=== PATIENT | male | born 1955 | race Caucasian/White ===

== ENCOUNTER 2016-10-03 10:13 | Inpatient (IN) | payer BC ==
[~2016-10-03 10:13] MED LIST: Bacitracin IV* 50,000 UNITS INJ ONE; Dexamethasone IV* 4 MG/ML 1 ML (4 MG) IV SLOW PU ONE; Famotidine IV* 10 MG/ML 2 ML (20 mg) IV ONE; Lidocaine 1% MPF wEPI 200,000* 30 ML SDV ONE; Thrombin 5,000 UNITS* 1 APPLIC KIT - topical use - TOPICAL ONE
[2016-10-03] MEDS ORDERED: Famotidine IV* 10 MG/ML 2 ML (20 mg) ONE ×2 (10:22→10:31)
[2016-10-03] MEDS ORDERED: Dexamethasone IV* 4 MG/ML 1 ML (4 MG) ONE ×2 (10:22→10:31)
[2016-10-03] MEDS ORDERED: Buffered Lidocaine 0.9% SYRIN* 5 ML/SYR SYRINGE ONE (10:22)
[2016-10-03] MEDS ORDERED: ceFAZolin 2 GM PREMIX(*) 2 GM/50 ML BAG IVPB ONE (10:22)
[2016-10-03] MEDS ORDERED: Thrombin 5,000 UNITS* 1 APPLIC KIT - topical use - TOPICAL ONE (11:36)
[2016-10-03] MEDS ORDERED: fentaNYL* 50 MCG/ML 2 ML VIAL (100 MCG VIAL) ONE ×2 (11:46→14:31)
[2016-10-03] MEDS ORDERED: Lidocaine 2% PF * 5 ML VIAL ONE (11:46)
[2016-10-03] MEDS ORDERED: Propofol* 10 MG/ML 20 ML BTL IV PUSH ONE (11:46)
[2016-10-03] MEDS ORDERED: Rocuronium* 10 MG/ML VIAL ONE (11:47)
[2016-10-03] MEDS ORDERED: Succinylcholine* 20 MG/ML 10 ML VIAL ONE (11:47)
[2016-10-03] MEDS ORDERED: HYDROcodone/ACETAMIN 5-325 MG* 1 TAB PO PRN (12:35)
[2016-10-03] MEDS ORDERED: oxyCODONE/Acetamin 5/325 MG* TAB PO PRN (12:35)
[2016-10-03] MEDS ORDERED: PROCHLORPERAZINE INJ 5 MG/ML 2 ML VIAL IV PRN (12:35)
[2016-10-03] MEDS ORDERED: Ondansetron INJ* 2 MG/ML VIAL ONE (12:56)
[2016-10-03] MEDS ORDERED: Ondansetron INJ* 2 MG/ML VIAL IV PRN (13:24)
[2016-10-03] MEDS ORDERED: Morphine PCA ADULT* 5 MG/ML 30 ML PCA SCH (14:00)
[2016-10-03] MEDS: fentaNYL* 50 MCG/ML 2 ML VIAL (100 MCG VIAL) IV PRN ×2 (14:33→14:43)
--- NOTE | 2016-10-03 14:44 | RAD ---
HISTORY: Decompressive lumbar laminectomy COMPARISONS: September 08, 2016 VIEWS: 1 , portable view of the lumbar spine performed for localization during spinal surgery. FINDINGS: Single crosstable lateral view of the lumbar spine performed at 12:30 demonstrates a metallic probe opposite of L5-S1, counting from L5 as the last lumbar type vertebral body. IMPRESSION: LIMITED PORTABLE VIEW OF THE SPINE FOR LOCALIZATION DURING SPINAL SURGERY.
[2016-10-03] MEDS ORDERED: HYDROcodone/ACETAMIN 5-325 MG* 1 TAB ONE (16:27)
[2016-10-03] MEDS: HYDROcodone/ACETAMIN 5-325 MG* 1 TAB PO PRN ×2 (16:29→22:10)
[2016-10-03] MEDS: Ropinirole TAB* 0.5 MG TAB PO SCH (20:32)
[2016-10-04] MEDS: HYDROcodone/ACETAMIN 5-325 MG* 1 TAB PO PRN ×4 (03:45→19:54)
--- NOTE | 2016-10-04 07:45 | PN ---
Progress Note - Progress Note SOAP: Subjective: []POD # 1 Doing well pre op leg pain relieved Moderate drain output Objective: []Neuro intact Moderate drain output Assessment: []Satis post op course Plan: []Monitor drainage Continue to observe for now
[2016-10-04] MEDS: DULoxetine DR CAP* 30 MG CAP.DR PO SCH (10:03)
[2016-10-04] MEDS: Diltiazem CD CAP* 120 MG PO SCH (10:04)
[2016-10-04] MEDS: Valsartan TAB* 40 MG PO SCH (10:04)
[2016-10-04] MEDS: buPROPion SR TAB.SR* 150 MG PO SCH (10:04)
[2016-10-04] MEDS: Acetaminophen TAB* 325 MG PO PRN ×2 (10:13→14:28)
[2016-10-04] MEDS ORDERED: Magnesium Hydroxide LIQ* 30 ML UDC PO PRN (19:47)
[2016-10-04] MEDS: Docusate CAP* 100 MG PO PRN (19:54)
[2016-10-04] MEDS: Ropinirole TAB* 0.5 MG TAB PO SCH (19:55)
[2016-10-05 07:48] VITALS: BP 121/65
--- NOTE | 2016-10-05 08:10 | PN ---
Progress Note - Progress Note SOAP: Subjective: [This is a 61 year old male s/p decompressive lumbar laminectomy L4-5 and lumbar discectomy L5-S1 on the left, POD #2. He complains of incisional soreness this morning. Pre-op symptoms are improving. He is ambulating independently. He is eating, drinking and voiding without difficulty. Denies headache. Pain is well controlled with PO pain medications. ] Objective: [ Vital Signs: Temp Pulse Resp BP Pulse Ox 98.1 F 64 16 121/65 100 10/05/16 07:22 10/05/16 07:22 10/05/16 07:22 10/05/16 07:22 10/05/16 07:22 General: alert and oriented. No distress. Neuro: Motor and sensory intact. Incision: Intact with jenny. GERARD drain removed today. No infection. Extremities: Full ROM GERARD drain output 10/03/16 10/03/16 10/03/16 17:07 19:24 20:40 Output, GERARD #1 40 45 15 10/03/16 10/04/16 10/04/16 22:25 00:04 03:57 Output, GERARD #1 15 15 15 10/04/16 10/04/16 10/04/16 08:30 13:57 22:00 Output, GERARD #1 15 15 30 10/05/16 06:00 Output, GERARD #1 10 ] Assessment: [Satisfactory post-op course. ] Plan: [1. Discharge home today 2. Discharge instructions discussed with the patient. ]
[2016-10-05] MEDS: Valsartan TAB* 40 MG PO SCH (08:45)
[2016-10-05] MEDS: DULoxetine DR CAP* 30 MG CAP.DR PO SCH (08:45)
[2016-10-05] MEDS: buPROPion SR TAB.SR* 150 MG PO SCH (08:45)
[2016-10-05] MEDS: Docusate CAP* 100 MG PO PRN (08:45)
[2016-10-05] MEDS: HYDROcodone/ACETAMIN 5-325 MG* 1 TAB PO PRN (08:46)
[2016-10-05] MEDS: Diltiazem CD CAP* 120 MG PO SCH (08:46)
--- NOTE | 2016-10-07 01:51 | DS ---
DISCHARGE SUMMARY: DATE OF ADMISSION: 10/03/16 DATE OF DISCHARGE: 10/05/16 DISCHARGE DIAGNOSES: 1. Herniated nucleus pulposus, L5-S1, on the left. 2. Lumbar spinal stenosis, L4-L5. 3. Hypertension. SPECIAL PROCEDURES: 1. Decompressive lumbar laminectomy, L4-L5. 2. Lumbar discectomy, L5-S1, on the left. HOSPITAL COURSE: This 61-year-old male presented in office with significant left- sided lumbar radiculopathy and weakness of the left lower extremity consistent with new herniated disk evidenced on lumbar spine MRI. He also noted a component of lumbar stenosis for the past several months. He failed to improve with conservative treatments for the next several weeks and was admitted at this time for elective surgical treatment. On the day of admission , he was taken to surgery, where under general anesthesia, a decompressive lumbar laminectomy at L4-L5 and lumbar discectomy at L5-S1 on the left operation was carried out. Postoperatively, he is doing well. Preoperative components were improving. The pain is well controlled with oral pain medication. He is eating, drinking, and voiding without difficulty. He remained in the hospital for an additional day secondary to wound drain output requiring further observation. On the second postoperative day, he was discharged home to the care of his family. Prior to discharge, the GERARD wound drain was removed without complication. DISCHARGE INSTRUCTIONS: Including wound care and activity level were discussed with the patient and provided. He will be seen in the office in approximately 7 to 10 days for followup and staple removal. DISCHARGE MEDICATIONS: [place] 5/325 mg 2 tablets by mouth every 4 hours as needed for pain. CHITO GLEZ [id number]/[facility] #: [id number] SHI
== END 2016-10-05 10:45 | disposition home or self-care (01) | DRG 310 ==
LOC: OR 10:13 → SSU 13:24 → OBSVTOIN 10-04 15:53
PROVIDERS: ADMIT Neurological Surgery; ATTEND Neurological Surgery
PROC: 01NB0ZZ Release Lumbar Nerve, Open Approach (ICD-10-PCS; principal; 2016-10-04)
PROC: 0SB40ZZ Excision of Lumbosacral Disc, Open Approach (ICD-10-PCS; 2016-10-04)
DX: M51.17 Intervertebral disc disorders with radiculopathy, lumbosacral region (principal); I10 Essential (primary) hypertension; M48.06 Spinal stenosis, lumbar region; Z85.46 Personal history of malignant neoplasm of prostate; G25.81 Restless legs syndrome; G47.33 Obstructive sleep apnea (adult) (pediatric); Z88.8 Allergy status to other drugs, medicaments and biological substances; Z91.048 Other nonmedicinal substance allergy status
CPT/HCPCS: 72100; 88304; A9270-GY; J0330; J0690; J1100; J2001; J2405; J2704; J3010

== ENCOUNTER 2016-10-24 09:20 | Inpatient (IN) | payer BC, OTHER ==
[2016-10-24] MEDS ORDERED: Vancomycin per Pharmacy* NOTE FOLLOW UP PRN (10:36)
[2016-10-24] MEDS ORDERED: Vancomycin(*) 1,250 MG IV x ONCE IVPB ONE ×2 (11:00)
[2016-10-24] MEDS ORDERED: Vancomycin(*) 1,000 MG in NS 0.9% 250 ML* 250 ML IVPB SCH (11:00)
[2016-10-24 11:23] LABS: Hematocrit 40 % (42-52); Hemoglobin 13.6 g/dl (14.0-18.0); Mean Corpuscular HGB Conc 34 g/dl (31-36); Mean Corpuscular Hemoglobin 32 pg (27-31); Mean Corpuscular Volume 94 fL (80-94); Mean Platelet Volume 9 um3 (7.4-10.4); Red Blood Count 4.22 10^6/ul (4.0-5.4); Red Cell Distribution Width 13 % (10.5-15); White Blood Count 14.2 10^3/ul (3.5-10.8)
[2016-10-24] MEDS: Acetaminophen TAB* 325 MG PO PRN ×2 (11:23→19:45)
[2016-10-24 11:40] LABS: BUN/Creatinine Ratio 14.4 (8-20); Calcium 9.2 mg/dL (8.6-10.3); EGFR African American 86.3 (>60); EGFR Non-African American 67.1 (>60); Potassium 3.8 mmol/L (3.5-5.0)
[2016-10-24] MEDS: HYDROcodone/ACETAMIN 5-325 MG* 1 TAB PO PRN (13:54)
[2016-10-24] MEDS: Vancomycin(*) 1,000 MG in NS 0.9% 250 ML* 250 ML IVPB SCH (18:02)
--- NOTE | 2016-10-24 23:13 | CONS ---
CONSULTATION REPORT: DATE OF CONSULT: 10/24/16 REQUESTING PHYSICIAN: Sarbjit Sandoval MD. CONSULTING SERVICE: Infectious Disease. REASON FOR CONSULT: Fever. IMPRESSION: 1. Status post decompressive lumbar laminectomy, L4 and L5 and lumbar microdiskectomy L5-S1 on October 03, now with an erythema and drainage from the incision as well as fever, myalgia, and headache. Gram stain of the fluid showed gram-positive cocci. He is growing Staphylococcus aureus, sensitivity is pending. It does not look like a PCR was done by the lab. He has no numbness or weakness in his lower extremities other than the baseline numbness he had preceding the surgery. 2. History of cauda equina syndrome, status post L3-L4 diskectomy in 2016. 3. Restless leg. RECOMMENDATIONS: Agree with vancomycin as you have done, goal trough 15 to 20. I will add blood cultures, follow the wound culture results, and his course here to decide on the duration of IV versus oral antibiotics. There is no hardware involved in the surgery, so long-term therapy may be less important. HISTORY OF PRESENT ILLNESS: This is a 61-year-old man admitted with low back pain and fever. He had lumbar laminectomy early September, had some occasional serous drainage and then this week had more drainage, was seen by Dr. Sandoval, had a suture removed with a culture sent. He has had fever and chills for a day but no rigors. He was directed to the hospital this morning. He was started on vancomycin. His white count is 14,000 here. He has a headache, which seems to come on when the fever comes with some sweats and chills. His appetite is decreased today. He has no pain other than the low back. Tylenol has helped with his fever. He has no prosthetic material present. PAST MEDICAL HISTORY: 1. Cauda equina syndrome, status post lumbar decompression surgery 2016. 2. Prostate cancer. 3. Obstructive sleep apnea. 4. Restless leg syndrome. 5. Depression. 6. Status post decompressive lumbar laminectomy, L4-L5 and lumbar microdiscectomy, L5-S1, 10/03/16. MEDICATIONS: 1. Tylenol. 2. Vicodin. 3. Vancomycin 1 g IV every 8 hours. ALLERGIES: 1. ERYTHROMYCIN. 2. BETA BLOCKERS. FAMILY HISTORY: No recurrent infections. SOCIAL HISTORY: He lives in [place] with his , works in [employer]. There is no travel, no sick contacts. REVIEW OF SYSTEMS: A full review of systems was negative except as noted above. PHYSICAL EXAM: Vital Signs: Temperature is 37, heart rate 76, respiratory rate 16, blood pressure 117/53, O2 sat 97% on room air. General: He is awake, not in distress. Neurologic: He is oriented x3, follows all commands. Strength is 5/5 in the quadriceps, tibialis anterior, and gastrocnemius bilaterally. There is no lower extremity clonus bilaterally. HEENT: There is no conjunctival hemorrhage. Oropharynx without lesions. Neck: Neck is supple without nuchal rigidity. Lymph Nodes: There is no cervical, supraclavicular, inguinal, axillary, or epitrochlear lymphadenopathy. Heart: Regular rate and rhythm without murmurs, rubs, or gallops. Lungs: Clear to auscultation bilaterally. Abdomen: Soft, nontender, and nondistended. There are bowel sounds present. Skin: There is no rash or splinter hemorrhage. Musculoskeletal: There is lumbar spine incision, which is intact except for about a centimeter at the caudal pole with mild surrounding erythema. No expressible fluid collection. There is edema, but no fluctuance or crepitus. DIAGNOSTIC STUDIES/LAB DATA: Creatinine 1.1. White blood cell count 14, hemoglobin 13, and platelets 167. Please see impression and recommendation as outlined above. Thank you for asking me to see Mr. Shrestha in consultation. [id number]/[facility] #: [id number] [facility]ITAL[facility]an
[2016-10-25] MEDS: Vancomycin(*) 1,000 MG in NS 0.9% 250 ML* 250 ML IVPB SCH ×2 (02:08→10:27)
--- NOTE | 2016-10-25 09:07 | PN ---
Progress Note - Progress Note Date of Service: 10/25/16 SOAP: Subjective: CC: fever HPI: 61 year old man with recent L4-L5 spine decompression now with fever and drainage and erythema from incision. Fever overnight. No rash or diarrhea. No back pain or leg weakness. Objective: [] Vital Signs Temp 37.7 C 10/25/16 07:21 Pulse 75 10/25/16 07:21 Resp 15 10/25/16 07:21 BP 97/44 10/25/16 07:21 Pulse Ox 98 10/25/16 07:21 Intake & Output 10/24/16 10/25/16 10/25/16 18:59 06:59 18:59 Intake Total 822 1476 Output Total 600 1100 Balance 222 376 Weight 170 lb Intake: IV Fluids 485 LR 485 IVPB 702 511 ABX - VANCOMYCIN 321 238 LR 381 Oral 120 480 Output: Urine 600 1100 Gen:awake, no distress HEENT:PERRL, MMM Neck:Supple Heart:RRR no murmur Lungs:CTA BL Abd:+BS NTND soft Skin: L spine incision 5 mm opening caudal aspect with small rim surrounding erythema; rest of incision intact and non tender without erythema; Dr Sandoval expressed small amount serous fluid from opening and explored with cotton tip, did not tunnel Assessment: 1. Staph aureus superficial incision infection, no signs or symptoms of deeper infection, wound looks better 2. s/p Lumbar decompression 3. hx cauda equina 4. fever Plan: 1. recheck CBC pending w vanco trough. Continue vanco pending sensitivity data and BC, schedule tyelonol. We discussed likely 2 weeks IV abx pending results of the rest of these studies. Seen and discussed with Dr Sandoval
[2016-10-25 09:20] LABS: Hematocrit 37 % (42-52); Hemoglobin 12.7 g/dl (14.0-18.0); Mean Corpuscular HGB Conc 35 g/dl (31-36); Mean Corpuscular Hemoglobin 33 pg (27-31); Mean Corpuscular Volume 94 fL (80-94); Mean Platelet Volume 9 um3 (7.4-10.4); Red Blood Count 3.91 10^6/ul (4.0-5.4); Red Cell Distribution Width 13 % (10.5-15); White Blood Count 12.2 10^3/ul (3.5-10.8)
[2016-10-25] MEDS ORDERED: Vancomycin Trough Check NOTE FOLLOW UP ONE (09:30)
[2016-10-25 09:33] LABS: EGFR African American 86.3 (>60); EGFR Non-African American 67.1 (>60)
[2016-10-25] MEDS: HYDROcodone/ACETAMIN 5-325 MG* 1 TAB PO PRN ×3 (09:58→20:20)
[2016-10-25 10:06] LABS: Vancomycin Trough 12.5 mcg/mL
[2016-10-25] MEDS: Ropinirole TAB* 0.5 MG TAB PO SCH ×2 (13:05→21:36)
[2016-10-25] MEDS: DULoxetine DR CAP* 30 MG CAP.DR PO SCH (13:05)
[2016-10-25] MEDS: buPROPion SR TAB.SR* 150 MG PO SCH (13:05)
[2016-10-25] MEDS: Diltiazem CD CAP* 120 MG PO SCH (13:09)
[2016-10-25] MEDS: Valsartan TAB* 80 MG PO SCH (13:10)
[2016-10-25] MEDS: Vancomycin(*) 1,250 MG in NS 0.9% 250 ML* 250 ML IVPB SCH (17:47)
[2016-10-26] MEDS ORDERED: NS 0.9% 250 ML* 250 ML ONE (02:02)
[2016-10-26] MEDS: Vancomycin(*) 1,250 MG in NS 0.9% 250 ML* 250 ML IVPB SCH ×3 (02:07→17:57)
[2016-10-26] MEDS: Acetaminophen TAB* 325 MG PO PRN ×3 (06:30→21:22)
--- NOTE | 2016-10-26 09:12 | PN ---
Progress Note - Progress Note Date of Service: 10/26/16 SOAP: Subjective: [This is a 61 year old male who underwent decompressive lumbar laminectomy L4-5 and lumbar discectomy L5-S1 on the left on 10/03/16. He is admitted for management of wound infection with IV antibiotics, this will be the third day. He continues to complain of a frontal headache that does not change with position, standing, laying down or walking. He also reports sweats noting that he has sweat through 3 hospital gowns since yesterday. Pain in the low back at the incision site remains the same. Denies new numbness, tingling, weakness and pain in the bilateral lower extremities.] Objective: [ Vital Signs: Temp Pulse Resp BP Pulse Ox 99.4 F 74 14 104/49 97 10/26/16 07:19 10/26/16 07:19 10/26/16 07:19 10/26/16 07:19 10/26/16 07:19 General: Alert and oriented. Slightly diaphoretic. Neuro: Motor and sensory intact. Incision: Incision to low back intact with 5mm open area draining mild amount. Skin surrounding incision is mildly erythematous and indurated. Clean dressing placed. Extremities: Full ROM. ] Assessment: [Staph aureus wound infection on Vancomycin, today is third day. Blood cultures negative at this time. Patient continues to complain of headache and wound continues to have mild drainage. Discussed this case with Dr. Sandoval.] Plan: [1. MRI w/wo lumbar spine today 2. Increase LR to 100cc/h 3. Continue pain management with norco.]
[2016-10-26] MEDS: HYDROcodone/ACETAMIN 5-325 MG* 1 TAB PO PRN ×2 (09:16→23:12)
[2016-10-26] MEDS: Valsartan TAB* 80 MG PO SCH (09:17)
[2016-10-26] MEDS: buPROPion SR TAB.SR* 150 MG PO SCH (09:17)
[2016-10-26] MEDS: DULoxetine DR CAP* 30 MG CAP.DR PO SCH (09:17)
[2016-10-26] MEDS: Diltiazem CD CAP* 120 MG PO SCH (09:44)
[2016-10-26] MEDS ORDERED: Polyethylene Glycol 3350* 17 GM PACKET PO PRN (09:47)
[2016-10-26] MEDS: Docusate CAP* 100 MG PO PRN (10:11)
[2016-10-26] MEDS ORDERED: Gadoteridol* (CONTRAST) 279.3 MG/ML 10 ML IV ONE (15:27)
--- NOTE | 2016-10-26 16:43 | RAD ---
Indication: Postop wound infection. Post decompressive lumbar laminectomy at L4-L5 and L5-S1 discectomy on October 03, 2016. Infected wound, fever, pain at incision. Comparison: October 03, 2016 intraoperative radiograph. September 08, 2016 MRI. Technique: CytoValea 1.5 Karime [id number] with GEM suite. Noncontrast and contrast-enhanced MRI lumbar sacral spine. 15 mL ProHance contrast administered IV. Report: Unremarkable conus medullaris and cauda equina. Osseous hemangioma noted at the posterior aspect of the T12 vertebral body without change. No suspicious bone marrow signal abnormality. Negative for fracture or spondylolysis at any level. Normal vertebral alignment accounting for exam positioning without spondylolisthesis or subluxation at any level. T12-L1: Unremarkable disc level for age without acquired spinal stenosis. L1-L2: Minimal annular disc bulge. Negative for central canal stenosis. Degenerative spondylosis and facet joint osteoarthritis results in mild LEFT foraminal stenosis. L2-L3: Mild annular disc bulge. Negative for significant acquired central canal stenosis. Degenerative spondylosis and facet joint osteoarthritis results in slight bilateral foraminal stenosis. L3-L4: Small broad posterior disc protrusion without change and posterior element osteoarthritis results in mild acquired central canal stenosis without significant change. Degenerative spondylosis and facet joint osteoarthritis results in moderate RIGHT and moderately severe LEFT foraminal stenosis without change. L4-L5: Post decompressive laminectomy. Small broad posterior disc protrusion and posterior element hypertrophic arthropathy results in moderate acquired central canal stenosis and moderate bilateral lateral recess stenosis. Mild improvement in central canal stenosis post decompressive laminectomy. L5-S1: Small nonenhancing dorsally protruding material from the disc space at the posterior central to LEFT subarticular level reference the axial T2 series and sagittal T1 fat sat postcontrast series is consistent with persistent or recurrent disc herniation. Extending LEFT lateral and inferior to the level of the lateral recess there is enhancing material most consistent with granulation tissue/early epidural fibrosis surrounding the traversing LEFT S1 nerve root in the lateral recess. Facet joint osteoarthritis results in slight RIGHT foraminal stenosis. Degenerative spondylosis and facet joint osteoarthritis results in mild LEFT foraminal stenosis. Within the posterior soft tissues at the level of the L4-L5 laminectomy site extending as far anterior as the posterior margin of the dura there is a 4.4 cm AP by 2.1 cm transverse by 2.3 cm cephalocaudal heterogeneous signal intensity collection with suggestion of a few foci of gas with peripheral enhancement and surrounding soft tissue edema. Reference sagittal T1 fat sat postcontrast series image 9 there is a smaller portion of the collection which extends caudally to the S1 level. Reference axial postcontrast series images 12-15 there is evidence for a contiguous tract extending from the collection to the skin surface at the posterior midline at the L4 level. No encasing epidural collection or inflammatory compression of the thecal sac evident. [place] images saved on the [facility] PACS. IMPRESSION: 1. In the appropriate clinical context the heterogeneous loculated collection with suggestion of intrinsic gas foci and peripheral marginal enhancement within the posterior postlaminectomy surgical bed centered at L4-L5 through L5-S1 is suspicious for postoperative abscess. There is suggestion of a contiguous tract extending from the abscess to the skin; correlate for possible drainage at the skin. 2. No encasing epidural collection or inflammatory compression of the thecal sac evident. 3. At L5-S1 there is suggestion of either persistent or recurrent disc protrusion in addition to postoperative granulation/early epidural fibrosis as described. Results discussed with Nurse Brenda 10/26/2016 4:36 PM EDT
--- NOTE | 2016-10-26 17:59 | PN ---
Progress Note - Progress Note Date of Service: 10/26/16 Note: Patient continues to complain of malaise,headache and has a low grade fever His wound drainage has decreased His Staph is Methicillin sensitive Due to his lack of progress,he was reimaged today with the MRI showing a pocket of deep infection With his lack of response I feel the proper course is ckeaning out his wound. The proposed procedure was explained in detail to the patient and his .The plan will be to try and close the wound over a drain. They were told that there is a chance that after the drain removed ,infection could reaccumulate Surgery will be scheduled 10/27 Dr. Dee notified of plan.
[2016-10-26] MEDS: Ropinirole TAB* 0.5 MG TAB PO SCH (21:23)
[2016-10-27] MEDS: Vancomycin(*) 1,250 MG in NS 0.9% 250 ML* 250 ML IVPB SCH (02:01)
--- NOTE | 2016-10-27 04:16 | HP ---
ADMISSION HISTORY AND PHYSICAL: DATE OF ADMISSION: 10/24/16 CHIEF COMPLAINT: Postoperative wound infection. HISTORY OF PRESENT ILLNESS: This 61-year-old gentleman underwent a lumbar decompression and discectomy 3 weeks prior to this admission. He had been seen in the office with postoperative wound drainage and had been placed on oral antibiotics. When seen in followup in the office this morning, he was complaining of headache and myalgia and his wound appeared somewhat more erythematous. The decision was made to admit him to the hospital for IV antibiotics and consultation with Infectious Disease. At the current time, he has complaints of headache and myalgia. He had some back pain, but denies any numbness or weakness in his legs other than the left lower extremity numbness he has postoperatively. He has no bowel or bladder difficultly. PAST MEDICAL HISTORY: Significant for: 1. Previous cauda equina syndrome at L3-4 for which he underwent decompression with good return of function in 2016. 2. History of prostate cancer. 3. Obstructive sleep apnea. 4. Restless leg syndrome. 5. Depression. CURRENT MEDICATIONS: Include: 1. Tylenol. 2. Vicodin. 3. Vancomycin. ALLERGIES: He is allergic to ERYTHROMYCIN and BETA BLOCKERS. FAMILY HISTORY: Family history was taken and is noncontributory to this illness. SOCIAL HISTORY: Revealed that he has a supportive family and currently does not smoke and does have an occasional drink. REVIEW OF SYSTEMS: A system review was performed with the general review being significant for fever and malaise. The musculoskeletal review being significant for back pain and wound drainage. The remainder of the review of systems was performed and does not contribute to this illness. PHYSICAL EXAMINATION VITAL SIGNS: His blood pressure is 117/53, respirations of 16, pulse of 76, and a temperature of 99.4. HEENT: Normal. NECK: Supple. LUNGS: Clear to auscultation. CARDIOVASCULAR: Exam revealed a regular rate and rhythm. ABDOMEN: Soft with normal bowel sounds. No tenderness. BACK: Exam revealed purulent drainage from the mid section of his lumbar wound with some wound erythema as well. EXTREMITIES: Motor examination revealed 5/5 strength in all extremities. Sensory exam revealed some postoperative numbness in his left foot similar to preop. IMPRESSION: He likely has a postoperative staph infection. He is being started on vancomycin and will be seen in consultation by Dr. Johnathan Dee. [id number]/[facility] #: [id number] SHI
[2016-10-27] MEDS ORDERED: Famotidine IV* 10 MG/ML 2 ML (20 mg) IV SLOW PU ONE (07:46)
[2016-10-27] MEDS: DULoxetine DR CAP* 30 MG CAP.DR PO SCH (08:10)
[2016-10-27] MEDS: buPROPion SR TAB.SR* 150 MG PO SCH (08:11)
[2016-10-27] MEDS: Diltiazem CD CAP* 120 MG PO SCH (08:11)
[2016-10-27] MEDS: Valsartan TAB* 80 MG PO SCH (08:11)
[2016-10-27] MEDS ORDERED: Vancomycin Trough Check NOTE FOLLOW UP ONE (09:30)
[2016-10-27] MEDS: ceFAZolin 2 GM PREMIX(*) 2 GM/50 ML BAG IVPB SCH ×2 (09:38→17:45)
[2016-10-27 10:34] LABS: EGFR African American 98.5 (>60); EGFR Non-African American 76.6 (>60)
[2016-10-27] MEDS ORDERED: Atracurium* 10 MG/ML 10 ML VIAL ONE (11:19)
[2016-10-27] MEDS ORDERED: fentaNYL* 50 MCG/ML 2 ML VIAL (100 MCG VIAL) ONE ×2 (11:19→14:19)
[2016-10-27] MEDS ORDERED: Midazolam* 1 MG/ML 5 ML VIAL (5 MG) ONE (11:19)
[2016-10-27] MEDS ORDERED: KETAMINE HCL* 50 MG/ML 10 ML VIAL ONE (11:19)
[2016-10-27] MEDS ORDERED: Levalbuterol 1.25MG/0.5ML NEB ONE (12:03)
[2016-10-27] MEDS ORDERED: PROCHLORPERAZINE INJ 5 MG/ML 2 ML VIAL IV PRN (12:14)
[2016-10-27] MEDS ORDERED: fentaNYL* 50 MCG/ML 2 ML VIAL (100 MCG VIAL) IV PRN (12:14)
[2016-10-27] MEDS ORDERED: oxyCODONE/Acetamin 5/325 MG* TAB PO PRN (12:14)
[2016-10-27] MEDS ORDERED: Morphine INJ* 2 MG/ML 1 ML SYRINGE IV PRN (12:14)
[2016-10-27] MEDS ORDERED: Lidocaine 1% MPF wEPI 200,000* 30 ML SDV ONE (12:23)
[2016-10-27] MEDS ORDERED: Bacitracin IV* 50,000 UNITS INJ ONE (12:23)
[2016-10-27] MEDS ORDERED: Thrombin 5,000 UNITS* 1 APPLIC KIT - topical use - TOPICAL ONE (12:48)
[2016-10-27] MEDS ORDERED: Glycopyrrolate IV* 0.2 MG/ML 1 ML VIAL ONE (13:13)
[2016-10-27] MEDS ORDERED: Dexamethasone IV* 4 MG/ML 1 ML (4 MG) ONE (13:13)
[2016-10-27] MEDS ORDERED: Lidocaine 2% PF * 5 ML VIAL ONE (13:13)
[2016-10-27] MEDS ORDERED: PROCHLORPERAZINE INJ 5 MG/ML 2 ML VIAL ONE (13:13)
[2016-10-27] MEDS ORDERED: Neostigmine Methylsulfate* 2 MG/2 ML SYRINGE ONE (13:13)
[2016-10-27] MEDS ORDERED: Morphine INJ* 10 MG/ML 1 ML SYRINGE ONE (13:13)
[2016-10-27] MEDS ORDERED: Propofol* 10 MG/ML 20 ML BTL IV PUSH ONE (13:13)
[2016-10-27] MEDS ORDERED: oxyCODONE/Acetamin 5/325 MG* TAB ONE (14:19)
[2016-10-27] MEDS ORDERED: Magnesium Hydroxide LIQ* 30 ML UDC PO PRN (16:33)
[2016-10-27] MEDS: HYDROcodone/ACETAMIN 5-325 MG* 1 TAB PO PRN ×2 (18:51→23:11)
[2016-10-27] MEDS: Ropinirole TAB* 0.5 MG TAB PO SCH (20:57)
[2016-10-28] MEDS: ceFAZolin 2 GM PREMIX(*) 2 GM/50 ML BAG IVPB SCH ×3 (01:52→17:56)
[2016-10-28] MEDS: HYDROcodone/ACETAMIN 5-325 MG* 1 TAB PO PRN ×3 (03:17→15:58)
[2016-10-28 06:50] LABS: Hematocrit 32 % (42-52); Hemoglobin 10.7 g/dl (14.0-18.0); Mean Corpuscular HGB Conc 34 g/dl (31-36); Mean Corpuscular Hemoglobin 32 pg (27-31); Mean Corpuscular Volume 96 fL (80-94); Mean Platelet Volume 9 um3 (7.4-10.4); Red Blood Count 3.31 10^6/ul (4.0-5.4); Red Cell Distribution Width 13 % (10.5-15); White Blood Count 10.1 10^3/ul (3.5-10.8)
--- NOTE | 2016-10-28 08:31 | PN ---
Progress Note - Progress Note Date of Service: 10/28/16 SOAP: Subjective: []POD #1 Doing well Afebrile Antibiotics switched to Cefazolin per Dr Ramirez Objective: []Neuro stable Dressing changed Assessment: []Cont IV antibiotics Plan: []Dr. Jacobs to cover thru 11/04 Case discussed with him
[2016-10-28] MEDS: Valsartan TAB* 80 MG PO SCH (08:50)
[2016-10-28] MEDS: DULoxetine DR CAP* 30 MG CAP.DR PO SCH (08:50)
[2016-10-28] MEDS: buPROPion SR TAB.SR* 150 MG PO SCH (08:50)
[2016-10-28] MEDS: Diltiazem CD CAP* 120 MG PO SCH (08:51)
--- NOTE | 2016-10-28 16:58 | OP ---
DATE OF OPERATION: 10/27/16 - ROOM #331 DATE OF : 53 PRIMARY SURGEON: Sarbjit Sandoval MD. ANESTHESIOLOGIST: August Palacios MD ANESTHESIA: General. PRE-OP DIAGNOSIS: Infected lumbar wound. POST-OP DIAGNOSIS: Infected lumbar wound. OPERATIVE PROCEDURE: Exploration of the infected lumbar wound. DESCRIPTION OF PROCEDURE: After satisfactory general anesthesia was obtained, the patient was placed on the operating table in a prone position with chest board and Ovidio frame and the back slightly flexed. The lumbar region was then clipped, prepped and draped in a sterile manner for re-exploration of the infected lumbar wound. The incision was infiltrated with 1% Xylocaine with epinephrine after which it was turned in sharply to the subcutaneous tissue. However, toward the right side, a collection of purulent material was encountered and this was removed with suction and irrigation. The dissection was carried down until the borders of the previous laminectomy were dissected free to ensure there were no deep pockets. The wound was copiously irrigated with antibiotic irrigation after which a Hany drain was placed in the epidural space and tunneled out towards the left side. The wound was then closed with a single layer of horizontal mattress 1 Prolene sutures. The estimated blood loss was less than 50 cc and final sponge, padding, and needle counts were correct. The patient was taken to the recovery room extubated and in stable condition. [id number]/[facility] #: [id number] MTDD
[2016-10-28] MEDS: Ropinirole TAB* 0.5 MG TAB PO SCH (20:50)
[2016-10-28] MEDS: Acetaminophen TAB* 325 MG PO PRN (20:51)
[2016-10-28] MEDS: Docusate CAP* 100 MG PO PRN (20:51)
[2016-10-29] MEDS: Acetaminophen TAB* 325 MG PO PRN (01:11)
[2016-10-29] MEDS: ceFAZolin 2 GM PREMIX(*) 2 GM/50 ML BAG IVPB SCH ×3 (02:04→17:58)
[2016-10-29] MEDS: Valsartan TAB* 80 MG PO SCH (09:09)
[2016-10-29] MEDS: buPROPion SR TAB.SR* 150 MG PO SCH (09:09)
[2016-10-29] MEDS: DULoxetine DR CAP* 30 MG CAP.DR PO SCH (09:10)
[2016-10-29] MEDS: Diltiazem CD CAP* 120 MG PO SCH (09:10)
[2016-10-29] MEDS: Docusate CAP* 100 MG PO PRN (09:15)
[2016-10-29] MEDS ORDERED: Ondansetron INJ* 2 MG/ML VIAL IV PRN (11:20)
[2016-10-29] MEDS ORDERED: Diazepam TAB(*) 5 MG PO PRN (11:21)
--- NOTE | 2016-10-29 11:36 | PN ---
Progress Note - Progress Note Date of Service: 10/29/16 SOAP: Subjective: Pt states he remains fatigued and at times out of breathe. He has ambulated, but not out of his room yet this AM. Constipation has now resolved with interventions. Pain is present; however, he is loathe to employ narcotics secondary to constipation. + Nausea, no vomiting. No new leg symptoms. Objective: Lying supine at ~ 30 degrees. Appears fatigued but in no sig distress. Incision is dressed, no active ooze. Drain in place with minimal output as per the nurse. No chest fremitus. L EHL 4+/5. Assessment: 61 yo male POD #2 from a lumbar washout for MSSA post-op infection (L4/5 decompression nearly 4 weeks ago); WBC count improving and ID directing management. Plan: Ambulate 7-10 around the nursing station today. Celebrex qd for pain Valium 5 mg Q8hrs prn for spasm Gastric prophylaxis started Zofran prn for nausea Lovenox 40 mg SQ daily IS 10/hour when awake SCD's while in bed Plan for PICC line tomorrow. Plan discussed with the nurse and patient; nurse will call prior to the end of her shift for purpose of update.
[2016-10-29] MEDS: celeCOXIB CAP* 100 MG PO SCH (12:08)
[2016-10-29] MEDS: Famotidine TAB* 20 MG PO SCH (12:09)
[2016-10-29] MEDS: Enoxaparin(*) 40 MG/0.4 ML SYR SUBCUT SCH (12:09)
[2016-10-29] MEDS: Ropinirole TAB* 0.5 MG TAB PO SCH (20:27)
[2016-10-29] MEDS ORDERED: Albuterol 2.5 MG/3 ML NEB.SOL* (0.083%) ONE (23:48)
[2016-10-29] MEDS ORDERED: Albuterol 2.5 MG/3 ML NEB.SOL* (0.083%) INH PRN (23:56)
[2016-10-29] MEDS ORDERED: guaiFENesin LIQ* 100 MG/5 ML UDC PO PRN (23:56)
--- NOTE | 2016-10-30 01:15 | PN ---
Progress Note - Progress Note Date of Service: 10/30/16 SOAP: Subjective: Pt with increase O2 hunger ~2300 on 2July necessitating 2L of O2 secondary to sats at 85% on RA. Pt states he noticed some dyspnea throughout the day during activity, but was able to catch his breath with exertion modification. No complaints of congestion, cough or sputum. Objective: VS reviewed, HOB at 30 degrees, CPAP in place. +1 pitting edema in the B/L LE, L>R. + JVD. Breathe sounds diminished at bases B/L R>L. I/O - positive over the previous 3 days > 7 liters (Pt states he has been voiding into the toilet, thus accurate output has not been recorded. CXR: Cephalization with ?RLL process. Assessment: 61 yo male with increased O2 needs, + signs of fluid overload on exam and x- ray. ? RLL process. Plan: Case discussed with hospitalist. BNP sent to assess for fluid status- if elevated, will give laxis in attempt to jettison fluid. Plan discussed with Nursing staff and patient. Awaiting REGIONAL SAFETY MANAGER report.
[2016-10-30] MEDS ORDERED: Furosemide IV* 10 MG/ML VIAL (40 MG) IV ONE (01:46)
[2016-10-30] MEDS: ceFAZolin 2 GM PREMIX(*) 2 GM/50 ML BAG IVPB SCH ×2 (01:58→08:49)
--- NOTE | 2016-10-30 02:03 | CONSULT ---
Consult Consult: PCP: Angelica Peterson MD Date/Time of Evaluation: 10/30/2016 0100 Reason for Consult: new 2L NC oxygen requirement & abnormal CXR HPI: Mr Shrestha is a 61YO male admitted 10/24/2016 for presumed S aureus infection of a lumbar decompression & discectomy incision performed 3 weeks earlier. Over the past 2-3 days he has noticed increased SOB with exertion culminating tonight in a new 2L NC oxygen requirement for which neurosurgery came to evaluate and requests consultation. Mr Shrestha has been having intermittent F/C & sweats related to his lumbar infection, but denies cough, congestion, abdominal pain, change in bowel/bladder, or other issues. PMedHx cauda equina syndrome w/p L3-4 decompression 2015 HTN depression restless leg syndrome Ambulatory Orders DULoxetine DR CAP* [Cymbalta CAP*] 90 mg PO QAM 09/20/15 buPROPion SR TAB* [Wellbutrin SR TAB*] 300 mg PO QAM 09/20/15 Ropinirole TAB* [Requip TAB*] 0.25 - 0.5 mg PO BEDTIME 03/24/16 Diltiazem CD CAP* [Cardizem CD CAP*] 120 mg PO QAM 09/29/16 Valsartan TAB* [Diovan TAB*] 80 mg PO QAM 09/29/16 Allergies Adhesive Tape Allergy (Verified 10/03/16 10:28) Blisters Beta Adrenergic Blockers Allergy (Verified 10/03/16 10:28) See Comment PT STATES HE GETS "IRRITABLE" WHEN TAKING Erythromycin [From Ilosone] Allergy (Verified 10/03/16 10:28) See Comment jaundice d/t liver problems per patient ENVIRONMENTAL Allergy (Uncoded 10/03/16 10:28) Congestion SocHx: no tobacco, mild alcohol, no recreational drugs; full code status FamHx: reviewed, non-contributory ROS: as above, otherwise reviewed and all were negative Constitutional: NAD, normally developed, well-nourished white male vitals: Vital Signs Temp 37.4 C 10/29/16 23:20 Pulse 72 10/29/16 23:56 Resp 16 10/29/16 23:56 BP 107/64 10/29/16 23:20 Pulse Ox 98 10/29/16 23:56 Intake & Output 07/0210/29/16 10/30/16 11:59 23:59 11:59 Intake Total 1373 2395 Output Total 1679 1200 500 Balance -306 1195 -500 Intake: IV Fluids 878 980 LR 878 980 IVPB 55 115 ABX - CEFAZOLIN 55 115 Oral 440 1300 Output: GERARD #1 4 0 0 Urine 1675 1200 500 Other: Estimated Void Medium Estimated Stool Amount Small HEENM: atraumatic; sclera/conjunctiva: non-icteric/clear; hearing: clinically intact; oropharynx: clear, mucosa moist Neck: soft tissue: non-tender; thyroid: normal Pulmonary: diminished R base with scant scattered crackles B, good aeration, no accessory muscle use CV: RR/RR, normal S1S2, no carotid bruit, no femoral bruit, no abdominal bruit, moderate jugular venous distention at 45 degrees, 2+ B DP/PT, no edema Abdominal: soft, non-distended, non-tender, no rebound/guarding/rigidity, normoactive bowel sounds, no hepatosplenomegaly or masses, no costovertebral angle tenderness Musculoskeletal: general: grossly intact; gait: stable Integumental: normal appearance and texture Psychiatric orientation: AA&O to PPS affect: calm mood: cooperative eye contact: good content: reliable responses: timely insight: good Testing: Lab Results 10/24/16 10/24/16 10/25/16 Range/Units 10:30 10:30 09:11 WBC 14.2 H (3.5-10.8) 10^3/ul RBC 4.22 (4.0-5.4) 10^6/ul Hgb 13.6 L (14.0-18.0) g/dl Hct 40 L (42-52) % MCV 94 (80-94) fL MCH 32 H (27-31) pg MCHC 34 (31-36) g/dl RDW 13 (10.5-15) % Plt Count 167 (150-450) 10^3/ul MPV 9 (7.4-10.4) um3 Neut % (Auto) (38-83) % Lymph % (Auto) (25-47) % Jones % (Auto) (1-9) % Eos % (Auto) (0-6) % Baso % (Auto) (0-2) % Absolute Neuts (auto) (1.5-7.7) 10^3/ul Absolute Lymphs (auto) (1.0-4.8) 10^3/ul Absolute Monos (auto) (0-0.8) 10^3/ul Absolute Eos (auto) (0-0.6) 10^3/ul Absolute Basos (auto) (0-0.2) 10^3/ul Absolute Nucleated RBC 10^3/ul Nucleated RBC % Sodium 130 L (133-145) mmol/L Potassium 3.8 (3.5-5.0) mmol/L Chloride 100 L (101-111) mmol/L Carbon Dioxide 26 (22-32) mmol/L Anion Gap 4 (2-11) mmol/L BUN 16 13 (6-24) mg/dL Creatinine 1.11 1.11 (0.67-1.17) mg/dL Est GFR ( Amer) 86.3 86.3 (>60) Est GFR (Non-Af Amer) 67.1 67.1 (>60) BUN/Creatinine Ratio 14.4 (8-20) Glucose 110 H (70-100) mg/dL Calcium 9.2 (8.6-10.3) mg/dL B-Natriuretic Peptide ( - 100) pg/mL Vancomycin Trough 12.5 mcg/mL 10/25/16 10/27/16 10/28/16 Range/Units 09:11 09:39 06:37 WBC 12.2 H 10.1 (3.5-10.8) 10^3/ul RBC 3.91 L 3.31 L (4.0-5.4) 10^6/ul Hgb 12.7 L 10.7 L (14.0-18.0) g/dl Hct 37 L 32 L (42-52) % MCV 94 96 H (80-94) fL MCH 33 H 32 H (27-31) pg MCHC 35 34 (31-36) g/dl RDW 13 13 (10.5-15) % Plt Count 157 183 (150-450) 10^3/ul MPV 9 9 (7.4-10.4) um3 Neut % (Auto) 85.9 H (38-83) % Lymph % (Auto) 7.1 L (25-47) % Jones % (Auto) 6.8 (1-9) % Eos % (Auto) 0 (0-6) % Baso % (Auto) 0.2 (0-2) % Absolute Neuts (auto) 8.7 H (1.5-7.7) 10^3/ul Absolute Lymphs (auto) 0.7 L (1.0-4.8) 10^3/ul Absolute Monos (auto) 0.7 (0-0.8) 10^3/ul Absolute Eos (auto) 0 (0-0.6) 10^3/ul Absolute Basos (auto) 0 (0-0.2) 10^3/ul Absolute Nucleated RBC 0 10^3/ul Nucleated RBC % 0 Sodium (133-145) mmol/L Potassium (3.5-5.0) mmol/L Chloride (101-111) mmol/L Carbon Dioxide (22-32) mmol/L Anion Gap (2-11) mmol/L BUN 12 (6-24) mg/dL Creatinine 0.99 (0.67-1.17) mg/dL Est GFR ( Amer) 98.5 (>60) Est GFR (Non-Af Amer) 76.6 (>60) BUN/Creatinine Ratio (8-20) Glucose (70-100) mg/dL Calcium (8.6-10.3) mg/dL B-Natriuretic Peptide ( - 100) pg/mL Vancomycin Trough mcg/mL 10/30/16 Range/Units 01:05 WBC (3.5-10.8) 10^3/ul RBC (4.0-5.4) 10^6/ul Hgb (14.0-18.0) g/dl Hct (42-52) % MCV (80-94) fL MCH (27-31) pg MCHC (31-36) g/dl RDW (10.5-15) % Plt Count (150-450) 10^3/ul MPV (7.4-10.4) um3 Neut % (Auto) (38-83) % Lymph % (Auto) (25-47) % Jones % (Auto) (1-9) % Eos % (Auto) (0-6) % Baso % (Auto) (0-2) % Absolute Neuts (auto) (1.5-7.7) 10^3/ul Absolute Lymphs (auto) (1.0-4.8) 10^3/ul Absolute Monos (auto) (0-0.8) 10^3/ul Absolute Eos (auto) (0-0.6) 10^3/ul Absolute Basos (auto) (0-0.2) 10^3/ul Absolute Nucleated RBC 10^3/ul Nucleated RBC % Sodium (133-145) mmol/L Potassium (3.5-5.0) mmol/L Chloride (101-111) mmol/L Carbon Dioxide (22-32) mmol/L Anion Gap (2-11) mmol/L BUN (6-24) mg/dL Creatinine (0.67-1.17) mg/dL Est GFR ( Amer) (>60) Est GFR (Non-Af Amer) (>60) BUN/Creatinine Ratio (8-20) Glucose (70-100) mg/dL Calcium (8.6-10.3) mg/dL B-Natriuretic Peptide 455 H ( - 100) pg/mL Vancomycin Trough mcg/mL CXR, personally reviewed: R>>L base infiltrate pneumonia vs atypical CHF Impression: 61M admitted for post-op lumbar wound infection developing new oxygen requirement clinically appearing volume overloaded DIAGNOSIS & PLAN Primary volume overload : 60mg IV furosemide x1 : daily weights : strict I&Os : D/C IVFs : supplemental oxygen : check ECHO in AM : supportive care lumbar operative wound infection : presumed MSSA : continue management via infectious disease & neurosurgery Secondary HTN : continue valsartan & diltiazem depression : continue bupropion & duloxetine restless leg syndrome : continue ropinirole Ambulatory Orders DULoxetine DR CAP* [Cymbalta CAP*] 90 mg PO QAM 09/20/15 buPROPion SR TAB* [Wellbutrin SR TAB*] 300 mg PO QAM 09/20/15 Ropinirole TAB* [Requip TAB*] 0.25 - 0.5 mg PO BEDTIME 03/24/16 Diltiazem CD CAP* [Cardizem CD CAP*] 120 mg PO QAM 09/29/16 Valsartan TAB* [Diovan TAB*] 80 mg PO QAM 09/29/16
--- NOTE | 2016-10-30 07:35 | RAD ---
HISTORY: Shortness of breath COMPARISONS: September 20, 2015 VIEWS:1: Single frontal portable view of the chest at 12:06 AM FINDINGS: LINES AND TUBES: None. CARDIOMEDIASTINAL SILHOUETTE: The cardiomediastinal silhouette is normal for portable technique. PLEURA: The costophrenic angles are sharp. No pleural abnormalities are noted. LUNG PARENCHYMA: There is confluent alveolar opacification of the right lung base ABDOMEN: The upper abdomen is clear. There is no subphrenic gas. BONES AND SOFT TISSUES: No bone or soft tissue abnormalities are noted. IMPRESSION: RIGHT LOWER LUNG CONSOLIDATION. RECOMMEND FOLLOW-UP UNTIL RESOLUTION TO EXCLUDE UNDERLYING PULMONARY PARENCHYMAL PATHOLOGY.
[2016-10-30] MEDS: celeCOXIB CAP* 100 MG PO SCH (08:50)
[2016-10-30] MEDS: Valsartan TAB* 80 MG PO SCH (08:50)
[2016-10-30] MEDS: Famotidine TAB* 20 MG PO SCH (08:50)
[2016-10-30] MEDS: DULoxetine DR CAP* 30 MG CAP.DR PO SCH (08:50)
[2016-10-30] MEDS: Diltiazem CD CAP* 120 MG PO SCH (08:51)
[2016-10-30] MEDS: Acetaminophen TAB* 325 MG PO PRN (08:51)
[2016-10-30] MEDS: buPROPion SR TAB.SR* 150 MG PO SCH (08:52)
[2016-10-30 12:06] LABS: BUN/Creatinine Ratio 12.1 (8-20); Calcium 8.6 mg/dL (8.6-10.3); EGFR Non-African American 63.8 (>60); Potassium 3.6 mmol/L (3.5-5.0)
[2016-10-30] MEDS: Enoxaparin(*) 40 MG/0.4 ML SYR SUBCUT SCH (12:25)
--- NOTE | 2016-10-30 14:21 | ECHO ---
Patient: ANSLEY MALONEY [facility] Rec#: [id number] : 1955 Date: 10/30/2016 Age: 61y Height: 170.18 cm / 67.0 in Weight: 77.11 kg / 170.0 lbs Sex: M BSA: 1.89 Room#: 331 Admit Date#: 10/24/2016 Type: Inpatient Referring: Osmel Cleaning MD Reading: Wilmar Leyva MD Redevelopment Specialist: Omayra Cantrell RDCS,RDMS CC: Ricardo Peterson MD Transthoracic Echocardiogram Indication: Edema BP: 125/68 HR: 67 Rhythm: NSR Findings History: HTN, BRIGITTE, prostate cancer, S/P lumbar discectomy Technical Comments: The study quality is good. Completed 1415 Left Ventricle: The left ventricular chamber size is normal. Mild concentric left ventricular hypertrophy is observed. Basal interventricular septum shows moderate thickening. Global left ventricular wall motion and contractility are within normal limits. There is normal left ventricular systolic function. The estimated ejection fraction is 55-60%. Normal left ventricular diastolic filling is observed. Left Atrium: The left atrium is mildly dilated. Right Ventricle: The right ventricular chamber size and systolic function are within normal limits. Right Atrium: The right atrium is slightly dilated. Aortic Valve: The aortic valve is trileaflet. The aortic valve leaflets are mildly thickened. There is trace to mild aortic regurgitation. There is no evidence of aortic stenosis. Mitral Valve: The mitral valve leaflets are mildly thickened. There is mild mitral regurgitation. There is no evidence of mitral stenosis. Tricuspid Valve: The tricuspid valve leaflets are normal. There is trace tricuspid regurgitation. Pulmonic Valve: There is no evidence of pulmonic valve thickening. There is a trace pulmonic regurgitation. Pericardium: There is no significant pericardial effusion. Aorta: The aortic root appears normal. There is mild dilatation of the aortic arch. Pulmonary Artery: The main pulmonary artery is not well visualized. Venous: The inferior vena cava appears normal in size. There is an approximate 50% respiratory change in the inferior vena cava dimension. Conclusions Mild concentric left ventricular hypertrophy is observed. Basal interventricular septum shows moderate thickening. Global left ventricular wall motion and contractility are within normal limits. There is normal left ventricular systolic function. The aortic valve leaflets are mildly thickened. There is trace to mild aortic regurgitation. There is mild mitral regurgitation. There is trace tricuspid regurgitation. There is no significant pericardial effusion. Measurements Name Value Normal Range RVIDd (AP) 2D 3 cm (0.9 - 2.6) RAd ISD 4CH 5 cm (3.4 - 4.9) RA (A4C)W 4.1 cm (2.9 - 4.6) IVSd (2D) 1.7 cm (0.6 - 1) LVPWd (2D) 1.1 cm (0.6 - 1) LVIDd (2D) 4.5 cm (3.6 - 5.4) LVIDs (2D) 2 cm - LV FS (2D) 56 % (25 - 45) Aortic Annulus 2 cm (1.4 - 2.6) Ao root diameter (2D) 2.9 cm (2.1 - 3.5) Ascending Ao 3 cm (2.1 - 3.4) Aortic arch 3.7 cm (1.8 - 3.4) LA dimension (AP) 2D 4.3 cm (2.3 - 3.8) LAd ISD 4CH 5.5 cm (2.9 - 5.3) LA ISD 4CH W 4.6 cm (2.5 - 4.5) Name Value Normal Range LA ESV SP 4CH (A/L) 83 ml - LA ESV SP 2CH (A/L) 69.65 ml - LA ESV BP (A/L) 76.25 ml - LA ESV BP (A/L) index 40 ml/m2 - LA ESV SP 4CH (MOD) 75.33 ml - LA ESV SP 2CH (MOD) 64.67 ml - Name Value Normal Range MV E-wave Vmax 1.1 m/sec - MV deceleration time 194 msec - MV A-wave Vmax 0.3 m/sec - MV E:A ratio 3.7 ratio - P. vein S-wave Vmax 0.47 m/sec - P. vein D-wave Vmax 0.71 m/sec - P. vein S:D Vmax ratio 0.67 ratio - LV septal e' Vmax 0.1 m/sec - LV lateral e' Vmax 0.13 m/sec - LV E:e' septal ratio 11 ratio - LV E:e' lateral ratio 8.5 ratio - Name Value Normal Range AV Vmax 1.6 m/sec - AV VTI 36.4 cm - AV peak gradient 10 mmHg - AV mean gradient 6.8 mmHg - LVOT Vmax 1.4 m/sec - LVOT VTI 28.5 cm - LVOT peak gradient 8 mmHg - LVOT mean gradient 4.1 mmHg - RADHA Vmax 0.8 m/sec - Name Value Normal Range MV Vmax 1.1 m/sec - MV VTI 28.6 cm - MV peak gradient 5 mmHg - MV mean gradient 1.3 mmHg - MV PHT 47 msec - MR Vmax 5.01 m/sec - MR VTI 145.88 cm - MVA (PHT) 4.7 cm2 - Name Value Normal Range TR Vmax 2.7 m/sec - TR peak gradient 29 mmHg - RAP 3 mmHg - RVSP 32 mmHg - IVC diameter 1.4 cm - Name Value Normal Range PV Vmax 0.8 m/sec - PV peak gradient 2.6 mmHg -
--- NOTE | 2016-10-30 14:35 | PN ---
Progress Note - Progress Note Date of Service: 10/30/16 SOAP: Subjective: CC: spine infection HPI: 61 year old man with recent L4-L5 spine decompression now with fever and drainage and erythema from incision. Had I&D. Dyspnea overnight; better this morning after 2L diuresis. No cough or fever. Objective: [] Vital Signs Temp 36.8 C 10/30/16 11:23 Pulse 64 10/30/16 11:23 Resp 16 10/30/16 11:23 BP 116/60 10/30/16 11:23 Pulse Ox 95 10/30/16 11:23 Intake & Output 10/29/16 10/30/16 10/30/16 18:59 06:59 18:59 Intake Total 2020 1190 740 Output Total 1175 3900 550 Balance 845 -2710 190 Weight 178 lb 6 oz Intake: IV Fluids 980 20 LR 980 20 IVPB 170 ABX - CEFAZOLIN 170 Oral 1040 1000 740 Output: GERARD #1 0 0 0 Urine 1175 3900 550 Gen:awake, no distress HEENT:PERRL, MMM Neck:Supple Heart:RRR no murmur Lungs:CTA BL Abd:+BS NTND soft Skin: L spine incision intact, GERARD drain scant fluid Assessment: 1. Staph aureus superficial incision infection and abscess, s/p I&D 2. s/p Lumbar decompression 3. hx cauda equina 4. dyspnea, resolved with diuresis Plan: 1. ANcef 2 gm IV Q8hrs ordered for 6 more weeks via PICC, cbc, cmp, crp ordered q7 days. Discussed with Dr Jacobs. Abx ready for home treatment when he is ready to be discharged.
[2016-10-30 15:25] VITALS: BP 110/55
== END 2016-10-30 18:03 | disposition home or self-care (01) | DRG 721 ==
LOC: OBSVTOIN 10:19 → SSU 10:19
PROVIDERS: ADMIT Neurological Surgery; ATTEND Neurological Surgery
PROC: 0J9700Z Drainage of Back Subcutaneous Tissue and Fascia with Drainage Device, Open Approach (ICD-10-PCS; principal; 2016-10-27 12:30)
PROC: 02HV33Z Insertion of Infusion Device into Superior Vena Cava, Percutaneous Approach (ICD-10-PCS; 2016-10-30)
DX: T81.4XXA Infection following a procedure, initial encounter (principal); E87.70 Fluid overload, unspecified; I10 Essential (primary) hypertension; B95.61 Methicillin susceptible Staphylococcus aureus infection as the cause of diseases classified elsewhere; X58.XXXA Exposure to other specified factors, initial encounter; G47.33 Obstructive sleep apnea (adult) (pediatric); G25.81 Restless legs syndrome; F32.9 Major depressive disorder, single episode, unspecified; Z79.1 Long term (current) use of non-steroidal anti-inflammatories (NSAID); Z79.2 Long term (current) use of antibiotics; Z79.899 Other long term (current) drug therapy; Z88.1 Allergy status to other antibiotic agents; Z88.8 Allergy status to other drugs, medicaments and biological substances; K59.00 Constipation, unspecified
CPT/HCPCS: 36415; 71010; 72158; 80048; 80202; 82565; 83880; 84520; 85025; 85027; 87040; 93306; 94640; 94760; A9270-GY; A9579; C1751; J0690; J0780; J1100; J1650; J1940; J2001; J2250; J2270; J2704; J3010; J3370

== ENCOUNTER 2020-07-28 | Inpatient (IN) ==
[2020-07-28] MEDS ORDERED: Heparin DRIP 25,000 UNITS BAG 25,000 UNITS/500 ML BAG IV SCH (00:45)
[2020-07-28] MEDS ORDERED: Heparin 5000 UNITS/ML 1 mL VIAL IV SCH (01:00)
[2020-07-28 02:09] LABS: ABS Basophils 0.1 10^3/ul (0-0.2); ABS Eosinophils 0.1 10^3/ul (0-0.6); ABS Lymphocytes 1.5 10^3/ul (1.0-4.8); ABS Monocytes 0.7 10^3/ul (0-0.8); ABS Neutrophils 4.8 10^3/ul (1.5-7.7); Eosinophil % 1.1 %; Hematocrit 44 % (42-52); Lymphocyte % 20.8 %; Mean Corpuscular HGB Conc 34 g/dL (31-36); Mean Corpuscular Hemoglobin 32 pg (27-31); Mean Corpuscular Volume 94 fL (80-94); Mean Platelet Volume 9.5 fL (7.4-10.4); Platelet Count 185 10^3/uL (150-450); Red Blood Count 4.63 10^6 /uL (4.18-5.48); Red Cell Distribution Width 13 % (10-15); White Blood Count 7.1 10^3/uL (3.5-10.8)
[2020-07-28 02:23] LABS: ALT 27 U/L (7-52); Albumin 4.3 g/dL (3.2-5.2); Albumin/Globulin Ratio 1.9 (1-3); Alkaline Phosphatase 56 U/L (34-104); BUN/Creatinine Ratio 19.4 (8-20); Blood Urea Nitrogen 20 mg/dL (6-24); CO2 Carbon Dioxide 26 mmol/L (22-32); Calcium 9.4 mg/dL (8.6-10.3); Chloride 105 mmol/L (101-111); EGFR African American 87.7 (>60); EGFR Non-African American 72.5 (>60); Globulin 2.3 g/dL (2-4); Glucose 128 mg/dL (70-100); Sodium 138 mmol/L (135-145); Total Protein 6.6 g/dL (6.4-8.9)
[2020-07-28 02:40] LABS: Anion Gap 7 mmol/L (2-11); Potassium 4.1 mmol/L (3.5-5.0); Troponin I 0.26 ng/mL (<0.03)
[2020-07-28 04:26] LABS: Troponin I 0.34 ng/mL (<0.03)
[2020-07-28] MEDS ORDERED: Nitro 2% OINT (Nitroglycerin) 1 INCH/PAK TOPICAL ONE (06:23)
[2020-07-28] MEDS ORDERED: Morphine 2 MG/ML SYRINGE IV ONE (06:23)
[2020-07-28 07:00] LABS: Cholesterol 222 mg/dL; HDL Cholesterol 52.3 mg/dL; LDL Cholesterol 121 mg/dL; Triglycerides 243 mg/dL
[2020-07-28] MEDS ORDERED: NS 0.9% 1000 ml BAG 1,000 ML IV SCH ×2 (07:45→13:00)
[2020-07-28] MEDS: DULoxetine DR 60 mg CAP PO SCH (08:07)
[2020-07-28] MEDS: Potassium Chlor 20 meq TAB.ER PO SCH (08:07)
[2020-07-28] MEDS ORDERED: Midazolam 5 mg/5 ml VIAL 1 mg/ml 5 ml VIAL (5 mg) ONE (08:12)
[2020-07-28] MEDS ORDERED: VERAPAMIL 2.5 MG/ML 2 ML VIAL ** 5 mg/2 ml ONE ×2 (08:12→09:42)
[2020-07-28] MEDS ORDERED: Heparin 1,000 UNIT/ML 10 ml (10,000 UNITS) CATHLAB/DIALYSIS ONE (08:12)
[2020-07-28] MEDS ORDERED: fentaNYL 100 mcg/2 ml 50 MCG/ML VIAL ONE (08:12)
[2020-07-28] MEDS ORDERED: Lidocaine 1% VIAL 10 MG/ML VIAL ONE ×2 (08:13→12:57)
[2020-07-28] MEDS ORDERED: Heparin 2 UNITS/ML 1000 mls 3,000 ML IV ONE (08:13)
[2020-07-28] MEDS ORDERED: Iohexol 350 (CONTRAST) 200 ML MDV IV ONE ×3 (08:13→09:34)
[2020-07-28] MEDS ORDERED: nitroGLYCERIN DRIP 25,000 MCG/250 ML BTL ONE (08:13)
[2020-07-28] MEDS ORDERED: diPHENhydraMINE IV 50 MG/ML 1 ml VIAL (BENADRYL) ONE (08:14)
[2020-07-28 08:48] LABS: Troponin I 0.44 ng/mL (<0.03)
[2020-07-28] MEDS ORDERED: Bivalirudin 250 MG VIAL ONE ×4 (09:36→13:47)
[2020-07-28] MEDS ORDERED: HYDROmorphone 1 MG/1 ML SYRINGE ONE (11:20)
[2020-07-28] MEDS ORDERED: Iohexol 300 (CONTRAST) 10 ML SDV ONE (12:57)
[2020-07-28] MEDS ORDERED: Heparin 2 UNITS/ML 1000 mls 2,000 ML IV ONE (12:57)
[2020-07-28] MEDS ORDERED: Nitro Patch/OINT Remove PATCH TOPICAL ONE (13:00)
[2020-07-29 05:11] LABS: ABS Basophils 0.1 10^3/ul (0-0.2); ABS Eosinophils 0.1 10^3/ul (0-0.6); ABS Lymphocytes 1.2 10^3/ul (1.0-4.8); ABS Monocytes 0.7 10^3/ul (0-0.8); Eosinophil % 1.8 %; Hematocrit 42 % (42-52); Hemoglobin 14.1 g/dL (14.0-18.0); Lymphocyte % 16.6 %; Mean Corpuscular HGB Conc 34 g/dL (31-36); Mean Corpuscular Hemoglobin 32 pg (27-31); Mean Corpuscular Volume 94 fL (80-94); Platelet Count 156 10^3/uL (150-450); Red Blood Count 4.39 10^6 /uL (4.18-5.48); Red Cell Distribution Width 13 % (10-15)
[2020-07-29 05:26] LABS: Calcium 8.7 mg/dL (8.6-10.3); Potassium 4.1 mmol/L (3.5-5.0)
[2020-07-29 05:32] LABS: BUN/Creatinine Ratio 16.2 (8-20); EGFR African American 91.8 (>60); EGFR Non-African American 75.9 (>60)
[2020-07-29] MEDS: DULoxetine DR 60 mg CAP PO SCH (08:21)
[2020-07-29] MEDS: Potassium Chlor 20 meq TAB.ER PO SCH (08:21)
[2020-07-29] MEDS ORDERED: NS 0.9% 1000 ml BAG 1,000 ML IV SCH ×2 (09:00→15:45)
[2020-07-29] MEDS ORDERED: Midazolam 5 mg/5 ml VIAL 1 mg/ml 5 ml VIAL (5 mg) ONE (13:10)
[2020-07-29] MEDS ORDERED: VERAPAMIL 2.5 MG/ML 2 ML VIAL ** 5 mg/2 ml ONE (13:11)
[2020-07-29] MEDS ORDERED: Lidocaine 1% VIAL 10 MG/ML VIAL ONE (13:11)
[2020-07-29] MEDS ORDERED: Heparin 1,000 UNIT/ML 10 ml (10,000 UNITS) CATHLAB/DIALYSIS ONE ×2 (13:11→14:49)
[2020-07-29] MEDS ORDERED: Iohexol 350 (CONTRAST) 200 ML MDV IV ONE ×2 (13:11→13:32)
[2020-07-29] MEDS ORDERED: Heparin 2 UNITS/ML 1000 mls 2,000 ML IV ONE (13:11)
[2020-07-29] MEDS ORDERED: nitroGLYCERIN DRIP 25,000 MCG/250 ML BTL ONE (13:11)
[2020-07-29] MEDS ORDERED: diPHENhydraMINE IV 50 MG/ML 1 ml VIAL (BENADRYL) ONE (13:15)
[2020-07-30 05:11] LABS: Anion Gap 6 mmol/L (2-11); BUN/Creatinine Ratio 14.4 (8-20); Blood Urea Nitrogen 15 mg/dL (6-24); CO2 Carbon Dioxide 25 mmol/L (22-32); Calcium 8.9 mg/dL (8.6-10.3); Chloride 108 mmol/L (101-111); EGFR African American 86.7 (>60); EGFR Non-African American 71.7 (>60); Glucose 107 mg/dL (70-100); Magnesium 2.1 mg/dL (1.9-2.7); Phosphorus 3.6 mg/dL (2.5-5.0); Sodium 139 mmol/L (135-145)
[2020-07-30] MEDS: DULoxetine DR 60 mg CAP PO SCH (08:06)
[2020-07-30] MEDS: Potassium Chlor 20 meq TAB.ER PO SCH (08:07)
[2020-07-30 12:05] VITALS: BP 138/87
[2020-07-30 12:24] LABS: Troponin I 0.82 ng/mL (<0.03)
== END 2020-07-30 12:45 | disposition home or self-care (01) | DRG 174 ==
LOC: ED → MERGE 03:35 → MEDTELE 03:35 → ICU 10:31
PROVIDERS: ADMIT Internal Medicine; ATTEND Internal Medicine

== ENCOUNTER 2021-07-29 12:31 | Observation (INO) ==
[2021-07-29] MEDS ORDERED: Lactated Ringers 1000 ml BAG 1,000 ML IV ONE (14:29)
[2021-07-29 15:07] LABS: ABS Basophils 0.1 10^3/ul (0-0.2); ABS Eosinophils 0.1 10^3/ul (0-0.6); ABS Lymphocytes 1.3 10^3/ul (1.0-4.8); ABS Monocytes 0.5 10^3/ul (0-0.8); ABS Neutrophils 3.3 10^3/ul (1.5-7.7); Eosinophil % 1.2 %; Hematocrit 39 % (42-52); Hemoglobin 13.2 g/dL (14.0-18.0); Lymphocyte % 24.8 %; Mean Corpuscular HGB Conc 34 g/dL (31-36); Mean Corpuscular Hemoglobin 33 pg (27-31); Mean Corpuscular Volume 95 fL (80-94); Mean Platelet Volume 9.1 fL (7.4-10.4); Platelet Count 168 10^3/uL (150-450); Red Blood Count 4.05 10^6 /uL (4.18-5.48); Red Cell Distribution Width 14 % (10-15); White Blood Count 5.1 10^3/uL (3.5-10.8)
[2021-07-29 15:15] LABS: INR 1.17 (0.86-1.15)
[2021-07-29 15:48] LABS: Albumin 4.5 g/dL (3.2-5.2); Albumin/Globulin Ratio 2.6 (1-3); Calcium 9.5 mg/dL (8.6-10.3); Globulin 1.7 g/dL (2-4); Potassium 3.9 mmol/L (3.5-5.0); Total Protein 6.2 g/dL (6.4-8.9); eGFR CKD-EPI 76.5 (>60)
[2021-07-29] MEDS ORDERED: PEG 3000 GI LAVAGE 1 GALLON PO ONE (17:06)
[2021-07-30 00:20] LABS: Hematocrit 34 % (42-52); Hemoglobin 11.6 g/dL (14.0-18.0)
[2021-07-30 06:07] LABS: ABS Basophils 0.1 10^3/ul (0-0.2); ABS Eosinophils 0.1 10^3/ul (0-0.6); ABS Lymphocytes 1.4 10^3/ul (1.0-4.8); ABS Monocytes 0.6 10^3/ul (0-0.8); ABS Neutrophils 3.1 10^3/ul (1.5-7.7); Eosinophil % 1.8 %; Hematocrit 33 % (42-52); Hemoglobin 11.3 g/dL (14.0-18.0); Lymphocyte % 27.8 %; Mean Corpuscular HGB Conc 35 g/dL (31-36); Mean Corpuscular Hemoglobin 33 pg (27-31); Mean Corpuscular Volume 94 fL (80-94); Mean Platelet Volume 9.1 fL (7.4-10.4); Platelet Count 150 10^3/uL (150-450); Red Blood Count 3.48 10^6 /uL (4.18-5.48); Red Cell Distribution Width 14 % (10-15); White Blood Count 5.2 10^3/uL (3.5-10.8)
[2021-07-30 06:31] LABS: Calcium 8.7 mg/dL (8.6-10.3); Potassium 3.9 mmol/L (3.5-5.0); eGFR CKD-EPI 78.3 (>60)
[2021-07-30] MEDS ORDERED: DULoxetine DR 30 mg CAP PO SCH (09:00)
[2021-07-30] MEDS ORDERED: Midazolam 10 mg/10 ml VIAL 1 mg/ml 10 ml VIAL (10 mg) ONE (09:55)
[2021-07-30] MEDS ORDERED: fentaNYL 100 mcg/2 ml 50 MCG/ML VIAL ONE (09:55)
[2021-07-30 19:18] VITALS: BP 109/69
== END 2021-07-30 15:10 | disposition home or self-care (01) ==
LOC: EDHOLD 12:31 → ED 12:31 → MED 23:37
PROVIDERS: ADMIT Internal Medicine; ATTEND Internal Medicine